=== PATIENT | male | born 1960 | race Caucasian/White ===

== ENCOUNTER → 2019-06-15 | Outpatient (CLI) | payer OTHER ==
[~2019-06-15] MED LIST: IOPAMIDOL 370 MG/ML 200 ML INFUS..BTL INJ ONE; METOPROLOL TARTRATE 25 MG TAB ONE; METOPROLOL TARTRATE INJ 1 MG/ML VIAL ONE; NITROGLYCERIN 0.4 MG SUBL ONE; SODIUM CHLORIDE 0.9% 100 ML ONE
--- NOTE | 2019-06-15 12:36 | Diagnostic Imaging Report ---
EXAM: CALCIUM SCORE AND CORONARY CTA INDICATION: ^[id number] ^[id number] ^Encounter for general adult medical COMPARISON: CTA coronary wo calcium scoring 05/30/2016 and 06/03/2013 TECHNIQUE: Multi-detector CT technology was employed (64 [employer]). Minimal slice thickness was performed following the intravenous administration of contrast material. The patient was premedicated with 50 mg by mouth and 2.5 mg i.v. metoprolol and 0.4 mg sublingual nitroglycerin for heart rate control and coronary dilation, respectively. IV CONTRAST: 100 mL of Isovue-370 ORAL CONTRAST: None COMPLICATIONS: None RADIATION DOSE: Total DLP: 1591.9 mGy*cm Estimated effective dose: (DLP x 0.015 x size factor) mSv CTDIvol has been reviewed. It is below the limits set by the Radiation Protocol Committee (RPC). For optimization of anatomic evaluation, multiplanar reconstruction, maximum intensity projections, and advanced 3-D off-line postprocessing were performed on a dedicated stand-alone workstation under the direct supervision of the interpreting physician. QUALITY: Excellent FINDINGS: CALCIUM SCORE: The observed Agatston Calcium Score of 0.00. The Agatston score for each vessel is as follows: LM: 0.00 LAD: 0.00 LCx: 0.00 RCA: 0.00 DISTRIBUTION OF THE CALCIFIED PLAQUES: No identifiable calcified plaques in the coronary arteries. 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 The left main coronary artery has a high take off from the ST junction, above the left coronary cusp. Then, the left main trifurcates into LAD, ramus intermedius and circumflex with normal course. 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 Left Main Coronary Artery: Anomalous origin as described above. The left main is normal sized vessel that trifurcates into the LAD, ramus intermedius and circumflex. There is no evidence of atherosclerotic changes or stenotic disease. Left Anterior Descending Coronary Artery: The LAD is a normal size vessel that wraps around the apex. It gives rise to 3 acute diagonal branches. There is no evidence of atherosclerotic changes or stenotic disease. Left Circumflex Coronary Artery: The LCX is a normal size vessel, which is non-dominant. It gives rise to two obtuse marginal branches. There is no evidence of atherosclerotic changes or stenotic disease. Right Coronary Artery: The RCA arises from the left and slightly to the left wall of the mid ascending thoracic aorta with a short segment (1.2 cm) that courses between the proximal main pulmonary artery and aorta, then the RCA crosses anterior to the thoracic aorta and continues within the right within the AV groove. There is minimal narrowing of the interarterial segment, with minimal luminal diameter of 3 mm compared to 4 mm more distally. The RCA is otherwise a normal size vessel, which is dominant. It gives rise to a conus branch, AV stefan branch, and two acute marginal branches. In its distal segment it bifurcates into the PDA and PV branch. There is no evidence of atherosclerotic changes or stenotic disease. CARDIAC MORPHOLOGY AND FUNCTION: The right and left atria and ventricles are morphologically normal. LIMITED CHEST: Where visualized, the chest wall anatomy and lungs are normal. The mediastinum and pericardium are normal. The central pulmonary arteries appear unremarkable. There is no significant lymphadenopathy in the visualized mediastinum or magdalena. Minimal atelectasis in the left lower lobe. The aortic valve is trileaflet. 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 The ascending thoracic aorta is also mildly ectatic, now measuring 3.9 cm, as measured on 06/03/2013. This may be related to change in volume status. No acute pathology of the partially visualized thoracic aorta. LIMITED ABDOMEN: Limited images of the upper abdomen reveal no abnormalities of the visualized organs. BONES: Mild to moderate degenerative disk disease of the visualized thoracic spine. IMPRESSION: 1. Total Agatston Calcium Score: 0.00, representing no identifiable coronary calcified plaques with very low likelihood of significant coronary artery disease. 2. 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 Then, there is normal course of the LAD, Ramus, and LCX. No atherosclerotic changes or stenotic disease. 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 Stable minimal narrowing at the interarterial segment. Then, the RCA has normal course. No atherosclerotic changes or stenotic disease. CAD-SUSANNE: 1 Reference: [email or web address] 3. 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 Signed by: Dr. Velma Rivera M.D. on 06/15/2019 12:32 PM
== END ==
LOC: CT 07:03
PROVIDERS: ATTEND Family Medicine
DX: Z13.0 Encounter for screening for diseases of the blood and blood-forming organs and certain disorders involving the immune mechanism (principal)
CPT/HCPCS: 75574; J7050; Q9967